=== PATIENT | female | born 1940 | race Caucasian/White ===

== ENCOUNTER 2025-02-17 07:52 | Outpatient (RCR) | payer MEDICARE, OTHER, SELFPAY ==
[2025-02-17 08:16] VITALS: BP 139/93; PULSE 78; RESP 14; TEMP 35.3
--- NOTE | 2025-02-17 08:53 | PCM.WC.HP ---
History of Present Illness Date of Service: 02/17/25 History of Wound: The patient is an 84-year-old female presenting with an elbow wound. The wound occurred approximately two months ago following a fall on December 16, which resulted in a hard, rock-like scab formation. The patient did not experience any fractures as confirmed by a negative X-ray, and there were no issues with elbow movement or sensation. The wound initially presented with swelling in the arm and hand, attributed to blood drainage, and the hand appeared black due to a hematoma. The wound measures approximately 2 x 2 cm with undermining of about 1 cm, and daily dressing changes have been performed. The patient has been applying antibiotic cream and changing the dressing daily, with plans to increase to twice daily changes to promote healing. The patient has a history of diabetes mellitus, although she has not been monitoring her A1c recently as advised by her previous healthcare provider. Given the presence of the wound, it was recommended to check her A1c along with other labs to assess her healing status. ROS: - Musculoskeletal: Denies pain or difficulty with elbow movement. - Neurological: Denies loss of sensation or motor function in the upper extremity. - Endocrine: Reports diabetes mellitus, but denies recent monitoring of A1c. Attestation: Documentation on this patient encounter was supported using ambient scribe technology/ voice AI technology. The patient consented to recording for the purpose of documenting the encounter. Provider reviewed content of the generated note prior to signature. [facility] Home Medications Medication Instructions Recorded Last Taken Type apixaban 5 mg tablet (Eliquis) 5 mg PO BID 02/17/25 Unknown History bupropion HCl 150 mg 24 hr tablet, 150 mg PO DAILY 02/17/25 Unknown History extended release diltiazem HCl 180 mg 180 mg PO DAILY 02/17/25 Unknown History capsule,extended release 24 hr furosemide 20 mg tablet 20 mg PO DAILY 02/17/25 Unknown History glimepiride 1 mg tablet 1 mg PO DAILY 02/17/25 Unknown History latanoprost 0.005 % eye drops 1 drp LEFT EYE 02/17/25 Unknown History lisinopril 10 mg tablet 10 mg PO DAILY 02/17/25 Unknown History metformin 500 mg tablet 500 mg PO BID 02/17/25 Unknown History metoprolol succinate 100 mg 100 mg PO BID 02/17/25 Unknown History tablet,extended release 24 hr pravastatin 20 mg tablet 20 mg PO DAILY 02/17/25 Unknown History Allergy/AdvReac Type Severity Reaction Status Date / Time acetaminophen (From Vicodin) Allergy Intermediate Itching Verified 02/17/25 08:22 hydrocodone (From Vicodin) Allergy Intermediate Itching Verified 02/17/25 08:22 Sulfa (Sulfonamide Allergy Intermediate Itching Verified 02/17/25 08:22 Antibiotics) Vital Signs Vital Signs Vital Signs: 02/17/25 08:16 Temperature 95.6 F L Temperature Source Temporal Pulse Rate 78 Respiratory Rate 14 Blood Pressure 139/93 H Blood Pressure Mean 108 Blood Pressure Source Monitor Blood Pressure Position Sitting Blood Pressure Location Left Arm Physical Exam Narrative RIGHT Upper Extremity Inspection: Wound on elbow, approximately 2 x 2 cm, with undermining nearly about 1 cm FROM 6 TO 11. No signs of infection. The wound appears to have been well cared for with daily dressing changes. Palpation: Arm and hand previously swollen due to blood drainage, but currently no acute swelling noted. Motor: Able to bend and extend all MP, PIP, and DIP joints. Pronation and supination are intact. Gives peace sign, thumbs up, and O.K. sign Sensory: Intact to light touch on the radial and ulnar borders. Patient confirms feeling touch everywhere. Vascular: Finger tips are warm and well perfused with greater than 2 second capillary refill. Debridement Note Debridement Note Wound debrided: Right elbow wound Laterality: Right Wound Grade/Stage: 3, subcutaneous tissue at the base of the wound, no exposed structures Type of Debridement: Excisional debridement Anesthesia Used: 4% Lidocaine Solution and - (5 cc of 1% lidocaine with 1:200,000 epinephrine ) Depth: Down to and including healthy tissue and in the subcutaneous layer Percentage of wound debrided: 100 Instrument Used: 7mm curette Tissue Removed: Old hematoma and fibrinous exudate Severity: Fat Layer Exposed Amount of bleeding with debridement: Mild Bleeding Controlled with: Compression and gauze Patient tolerated procedure: Patient tolerated procedure well Post-Debridement Measurements and Additional Note: Post-Debridement Measurements/Treatment - Nurse 1 - General Ulcer Assessment Start: 02/17/25 08:16 Freq: Status: Active Protocol: ZAK Activity Type Activity Date Activity User E-sign Co-sign Detail Recorded Client Recorded Date Recorded By Document 02/17/25 08:16 ML [id number] 02/17/25 08:20 ML 02/17/25 08:16 - Today's Visit Information Type of service Initial Visit Arrival Mode Ambulatory Transfer Assistance None Patient Identification Verified (Name & Yes ) Patient Requires Transmission-Based No Precautions Vital Signs Temperature (97.8 F-99.1 F) 95.6 F L Temperature Source Temporal Pulse Rate (60-100) 78 Pulse Location Monitor Respiratory Rate (12-18) 14 Respiratory rate source Monitor Blood Pressure (90/60-120/80) 139/93 H Blood Pressure Mean 108 Source Monitor Position Sitting Blood Pressure Location Left Arm Pain Scale: 0-10 Numeric Is Patient Pain Free? Yes - Nurse 1 - General Ulcer Measurement Start: 02/17/25 08:16 Freq: Status: Active Protocol: Activity Type Activity Date Activity User E-sign Co-sign Detail Recorded Client Recorded Date Recorded By Document 02/17/25 08:16 ML [id number] 02/17/25 08:20 ML 02/17/25 08:16 Wound Center Nurse 1 #1 RIGHT ELBOW -Current Size (cm) - Length 2 -Current Size (cm) - Width 1.5 -Current Size (cm) - Depth 0.2 -Total Square Cm 3.0 -Undermining/Tunneling Yes -Undermining/Tunneling Starts (O'clock 9 ) -Undermining/Tunneling Ends (O'clock) 12 -Maximum Distance (cm) 0.5 -Exudate Amt Medium -Exudate Type Sanguineous -Wound Margin Thickened & Rolled Under -Granulation Amt Small (1-33%) -Slough/Fibrin Yes -Necrosis Amt Medium (34-66%) -Necrotic Tissue Type Adherent Slough -Texture (Cora-wound Skin Appearance) Assessed -Moisture (Cora-wound Skin Appearance) Assessed -Color (Cora-wound Skin Appearance) Assessed -Tenderness on Palpation (Cora-wound No Skin Appearance) -Ulcer Cleansing Rinsed/ Irrigated with Saline -Foul Odor after Cleansing No -Anesthetic Used 5% Lidocaine Gel - Nurse 2 - General Ulcer CM Notes Start: 02/17/25 08:16 Freq: Status: Active Protocol: Activity Type Activity Date Activity User E-sign Co-sign Detail Recorded Client Recorded Date Recorded By Document 02/17/25 08:44 JF [id number] 02/17/25 08:52 AUSTEN 02/17/25 08:44 Wound Center Nurse 2 -Time 08:46 -Correct Patient Yes -Correct Side, Site, Position Yes -Correct Procedure Yes -Procedure Performed Yes -Type of Procedure Debridement -Clinical Debridement Subcutaneous -Tissue Removed Subcutaneous -Post Debridement (cm) - Length 2.0 -Post Debridement (cm) - Width 2 -Post Debridement (cm) - Depth 0.8 -Total Square (Post) (cm) 4.0 -Area of Debridement (cm) - Length 2 -Area of Debridement (cm) - Width 2 -Total Square (Area) (cm) 4 -Tunneling No -Undermining/Tunneling Yes -Undermining/Tunneling Starts (O'clock 8 ) -Undermining/Tunneling Ends (O'clock) 11 -Maximum Distance (cm) 1.0 -Circular Undermining No -Wound/Ulcer Outcome Not Healed -Ulcer Cleansing Rinsed/ Irrigated with Saline -Foul Odor after Cleansing No -Bioengineered Tissue No -Bleeding Controlled with Pressure -Treatment Response Procedure Tolerated Well -Offloading No -Debridement - Subq, 1st 20sq cm Yes Pain Scale: 0-10 Numeric Is Patient Pain Free? Yes Charges/Coding Visit Charges Office Visits / Consults: 62429 OV L3 New 30min Procedures Integumentary [id number]: [id number] Ritika subq tissue 20 sq cm/< Assessment/Plan Assessment/Plan (1) Ulcer of upper extremity: CODE(S): L98.499 - Non-pressure chronic ulcer of skin of other sites with unspecified severity PLAN: Assessment and Plan 84-year-old female with a history of diabetes mellitus presenting with an elbow wound. The wound, resulting from a fall two months ago, has shown no signs of infection and has been managed with daily dressing changes and antibiotic cream application. The wound measures approximately 2 x 2 cm with 1 cm undermining, and there is a plan to increase dressing changes to twice daily to promote healing. The patient's diabetes mellitus is a concern for wound healing, and it is recommended to check her A1c and other labs to assess her healing status. 1. Elbow Wound The plan for the elbow wound includes increasing dressing changes to twice daily with saline-soaked gauze to promote healing from the inside out. Antibiotic cream application will continue, and the wound will be monitored for signs of infection. Follow-up is scheduled for next week to assess progress and make any necessary adjustments to the treatment plan. 2. Diabetes Mellitus Given the patient's diabetes mellitus, it is important to monitor her A1c and other relevant labs to ensure optimal wound healing. A comprehensive metabolic panel and prealbumin levels will be checked to assess her nutritional and healing status. PLAN: Plan - Change the dressing on the elbow wound twice daily using saline-soaked gauze. - Continue applying antibiotic cream to the wound as directed. - Monitor the wound for any signs of infection, such as increased redness, swelling, or discharge. - Attend the follow-up appointment next week to assess wound healing progress. - Ensure A1c and other labs are checked to monitor diabetes management and wound healing.
[2025-02-17 12:25] LABS: Hematocrit 43.5 % (37-47); Hemoglobin 13.7 g/dL (12.0-15.0); Immature Granulocytes Count 0.050 X10^3/uL (0.0-0.0); Mean Corp Hgb Conc 31.5 g/dL (32-36); Mean Corpuscular Volume 93.8 fL (81-99); Mean Platelet Vol. 11.6 fl (6.2-12.0); NRBC Flagged by Analyzer 0 % (0-5); Platelet Count 277 K/mm3 (150-450); RBC Distribution Width CV 13.5 % (11.6-14.6); RBC Distribution Width SD 46.6 fl (35.1-43.9); Red Blood Count 4.64 M/mm3 (4.2-5.4); White Blood Count 12.1 K/mm3 (4.4-11.0)
[2025-02-17 13:51] LABS: AST(SGOT) 27 U/L (<=31); Alanine Aminotransfer ALT/SGPT 12 U/L (<=34); Albumin, Serum 4.2 g/dL (3.4-4.8); Alkaline Phosphatase 65 U/L (35-104); Anion Gap 18 (5-15); BUN 14 mg/dL (4-19); BUN/Creat Ratio 12.3 RATIO (10-20); Calcium,Total 9.5 mg/dL (7.6-11.0); Carbon Dioxide 19.6 mmol/L (21.0-32.0); Chloride 103 mmol/L (98-108); Globulin 3.3 g/dL (2.2-4.2); Glucose 146 mg/dL (70-99); Potassium 3.9 mmol/L (3.3-5.1)
[2025-02-18 04:07] LABS: Prealbumin 25 mg/dL (9-32)
--- NOTE | 2025-02-18 10:07 | WC ---
PHOTO-RIGHT ELBOW 02/17/25
== END 2025-02-18 23:59 | disposition home or self-care (01) ==
LOC: WC 07:52
PROVIDERS: PCP Internal Medicine Infectious Disease; Referring Provider Internal Medicine Infectious Disease; Visit Provider Surgery Plastic and Reconstructive Surgery
DX: E11.622 Type 2 diabetes mellitus with other skin ulcer (principal); L98.492 Non-pressure chronic ulcer of skin of other sites with fat layer exposed
CPT/HCPCS: 11042; 36415; 80053; 83036; 84134; 85025; 85652; 99204; 99214; G0463

== ENCOUNTER 2025-03-17 08:00 | Outpatient (RCR) | payer MEDICARE, OTHER, SELFPAY ==
[2025-02-24 08:11] VITALS: BP 139/77; PULSE 86; RESP 18; TEMP 35.5
--- NOTE | 2025-02-24 08:25 | PN.PCM_ITS ---
History of Present Illness Date of Service: 02/24/25 History of Wound: The patient is an 84-year-old female presenting with an elbow wound. The wound occurred approximately two months ago following a fall on December 16, which resulted in a hard, rock-like scab formation. The patient did not experience any fractures as confirmed by a negative X-ray, and there were no issues with elbow movement or sensation. The wound initially presented with swelling in the arm and hand, attributed to blood drainage, and the hand appeared black due to a hematoma. The wound measures approximately 2 x 2 cm with undermining of about 1 cm, and daily dressing changes have been performed. The patient has been applying antibiotic cream and changing the dressing daily, with plans to increase to twice daily changes to promote healing. The patient has a history of diabetes mellitus, although she has not been monitoring her A1c recently as advised by her previous healthcare provider. Given the presence of the wound, it was recommended to check her A1c along with other labs to assess her healing status. ROS: - Musculoskeletal: Denies pain or difficulty with elbow movement. - Neurological: Denies loss of sensation or motor function in the upper extremity. - Endocrine: Reports diabetes mellitus, but denies recent monitoring of A1c. Attestation: Documentation on this patient encounter was supported using ambient scribe technology/ voice AI technology. The patient consented to recording for the purpose of documenting the encounter. Provider reviewed content of the generated note prior to signature. Subjective Subjective History of Wound: The patient is an 84-year-old female presenting with an elbow wound. The wound occurred approximately two months ago following a fall on December 16, which resulted in a hard, rock-like scab formation. The patient did not experience any fractures as confirmed by a negative X-ray, and there were no issues with elbow movement or sensation. The wound initially presented with swelling in the arm and hand, attributed to blood drainage, and the hand appeared black due to a hematoma. The wound measures approximately 2 x 2 cm with undermining of about 1 cm, and daily dressing changes have been performed. The patient has been applying antibiotic cream and changing the dressing daily, with plans to increase to twice daily changes to promote healing. The patient has a history of diabetes mellitus, although she has not been monitoring her A1c recently as advised by her previous healthcare provider. Given the presence of the wound, it was recommended to check her A1c along with other labs to assess her healing status. ROS: - Musculoskeletal: Denies pain or difficulty with elbow movement. - Neurological: Denies loss of sensation or motor function in the upper extremity. - Endocrine: Reports diabetes mellitus, but denies recent monitoring of A1c. Attestation: Documentation on this patient encounter was supported using ambient scribe technology/ voice AI technology. The patient consented to recording for the purpose of documenting the encounter. Provider reviewed content of the generated note prior to signature. CURRENT ENCOUNTER, 24 February 2025: Doing well overall [] Objective Data Objective Data Vital Signs: Vital Signs Temp Pulse Resp BP 96 F L 86 18 139/77 H 02/24/25 08:11 02/24/25 08:11 02/24/25 08:11 02/24/25 08:11 Charges/Coding Procedures Integumentary 111xxx-113xx: [id number] Ritika subq tissue 20 sq cm/< Physical Exam Narrative RIGHT Upper Extremity Inspection: Wound on elbow, 1 x 1 cm, without undermining today. No signs of infection. The wound appears to have been well cared for with daily dressing changes. Palpation: Arm and hand previously swollen due to blood drainage, but currently no acute swelling noted. Motor: Able to bend and extend all MP, PIP, and DIP joints. Pronation and supination are intact. Gives peace sign, thumbs up, and O.K. sign Sensory: Intact to light touch on the radial and ulnar borders. Patient confirms feeling touch everywhere. Vascular: Finger tips are warm and well perfused with greater than 2 second capillary refill. Debridement Note Debridement Note Wound debrided: Right elbow wound Laterality: Right Wound Grade/Stage: 3 Type of Debridement: Excisional debridement Anesthesia Used: 4% Lidocaine Solution Depth: Down to and including healthy tissue Percentage of wound debrided: 100 Instrument Used: 7mm curette Tissue Removed: Fibrinous exudate and biofilm Severity: Fat Layer Exposed Amount of bleeding with debridement: Mild Bleeding Controlled with: Pressure Patient tolerated procedure: Patient tolerated procedure well Post-Debridement Measurements and Additional Note: Post-Debridement Measurements/Treatment ALBER - Nurse 1 - General Ulcer Assessment Start: 02/24/25 08:11 Freq: Status: Active Protocol: ALBER.LOWEXT Activity Type Activity Date Activity User E-sign Co-sign Detail Recorded Client Recorded Date Recorded By Document 02/24/25 08:11 RB [id number] 02/24/25 08:14 RB 02/24/25 08:11 - Today's Visit Information Type of service Follow-up Visit (Physician/COSMETICS COUNTER MANAGER ) Arrival Mode Ambulatory Transfer Assistance Manual Patient Identification Verified (Name & Yes ) Patient Requires Transmission-Based No Precautions Vital Signs Temperature (97.8 F-99.1 F) 96 F L Temperature Source Temporal Pulse Rate (60-100) 86 Pulse Location Monitor Respiratory Rate (12-18) 18 Respiratory rate source Observation Blood Pressure (90/60-120/80) 139/77 H Blood Pressure Mean (mm Hg) 97 Source Monitor Position Semi-Fowlers Blood Pressure Location Left Arm History Since Last Visit- (Skip if this is Patient's initial visit) Have you changed medications since your No last visit? Any new allergies or adverse reactions No Had a fall/change in ADL's that may No increase risk of falls Signs or symptoms of abuse and/or No neglect since last visit Have you been in the hospital since your No last visit? Has dressing in place as prescribed Yes Has compression in place as prescribed N/A Has offloadiing in place as prescribed N/A Experienced any changes in pain level or No management Pain Scale: 0-10 Numeric Is Patient Pain Free? No - Nurse 1 - General Ulcer Measurement Start: 02/24/25 08:11 Freq: Status: Active Protocol: Activity Type Activity Date Activity User E-sign Co-sign Detail Recorded Client Recorded Date Recorded By Document 02/24/25 08:11 RB [id number] 02/24/25 08:14 RB 02/24/25 08:11 Wound Center Nurse 1 #1 RIGHT ELBOW -Combined with other wound No -Current Size (cm) - Length 1.6 -Current Size (cm) - Width 1 -Current Size (cm) - Depth 0.4 -Total Square Cm 1.6 -Photo Taken Yes -Tunneling No -Undermining/Tunneling Yes -Undermining/Tunneling Starts (O'clock 5 ) -Undermining/Tunneling Ends (O'clock) 5 -Maximum Distance (cm) 0.8 -Circular Undermining No -Exudate Amt Medium -Exudate Type Serosanguineous -Wound Margin Thickened & Rolled Under -Granulation Amt Medium (34-66%) -Granulation Quality [place] -Slough/Fibrin Yes -Necrosis Amt Small (1-33%) -Necrotic Tissue Type Adherent Slough -Structure Exposed N/A -Texture (Cora-wound Skin Appearance) Assessed -Moisture (Cora-wound Skin Appearance) Dry/Scaly -Color (Cora-wound Skin Appearance) Assessed -Temperature (Cora-wound Skin No Abnormality Appearance) (Pt Warm) -Tenderness on Palpation (Cora-wound No Skin Appearance) -Ulcer Cleansing Wound Cleanser -Foul Odor after Cleansing No -Anesthetic Used 5% Lidocaine Gel Assessment/Plan Assessment/Plan (1) Ulcer of upper extremity: CODE(S): L98.499 - Non-pressure chronic ulcer of skin of other sites with unspecified severity PLAN: Assessment and Plan 84-year-old female with a history of diabetes mellitus presenting with an elbow wound. The wound, resulting from a fall two months ago, has shown no signs of infection and has been managed with twice daily dressing changes. The wound measures approximately 2 x 2 cm with 1 cm undermining, and there is a plan to continue dressing changes twice daily to promote healing. 1. Elbow Wound The plan for the elbow wound includes dressings twice daily with saline-soaked gauze to promote healing from the inside out. Follow-up is scheduled for 3 weeks to assess progress and make any necessary adjustments to the treatment plan. 2. Diabetes Mellitus A1c 6.4 (discussed today) Albumin was 4.2 and prealbumin 25 (adequate for wound healing)
--- NOTE | 2025-02-25 11:33 | WC ---
PHOTO-RIGHT ELBOW 02/24/25
[2025-03-17 08:12] VITALS: BP 132/73; PULSE 78; RESP 17; TEMP 35.3
--- NOTE | 2025-03-17 08:31 | PCM.WC.PN ---
History of Present Illness Date of Service: 03/17/25 History of Wound: The patient is an 84-year-old female presenting with an elbow wound. The wound occurred approximately two months ago following a fall on December 16, which resulted in a hard, rock-like scab formation. The patient did not experience any fractures as confirmed by a negative X-ray, and there were no issues with elbow movement or sensation. The wound initially presented with swelling in the arm and hand, attributed to blood drainage, and the hand appeared black due to a hematoma. The wound measures approximately 2 x 2 cm with undermining of about 1 cm, and daily dressing changes have been performed. The patient has been applying antibiotic cream and changing the dressing daily, with plans to increase to twice daily changes to promote healing. The patient has a history of diabetes mellitus, although she has not been monitoring her A1c recently as advised by her previous healthcare provider. Given the presence of the wound, it was recommended to check her A1c along with other labs to assess her healing status. ROS: - Musculoskeletal: Denies pain or difficulty with elbow movement. - Neurological: Denies loss of sensation or motor function in the upper extremity. - Endocrine: Reports diabetes mellitus, but denies recent monitoring of A1c. Attestation: Documentation on this patient encounter was supported using ambient scribe technology/ voice AI technology. The patient consented to recording for the purpose of documenting the encounter. Provider reviewed content of the generated note prior to signature. CURRENT ENCOUNTER, 17 Mar 2025: Doing well. Healed. Reviewed labs (A1C 6.4) Objective Data Objective Data Vital Signs: Vital Signs Temp Pulse Resp BP O2 Del Method 95.6 F L 78 17 132/73 H Room Air 03/17/25 08:12 03/17/25 08:12 03/17/25 08:12 03/17/25 08:12 03/17/25 08:12 Oxygen Delivery Method Room Air Charges/Coding Visit Charges Office Visits / Consults: 93578 OV L2 Est 10min Physical Exam Narrative Right forearm healed. Re-epithelialized Debridement Note Debridement Note No debridement was completed: No debridement was completed today Post-Debridement Measurements and Additional Note: Post-Debridement Measurements/Treatment ALBER - Nurse 1 - General Ulcer Assessment Start: 02/24/25 08:11 Freq: Status: Active Protocol: ZAK Activity Type Activity Date Activity User E-sign Co-sign Detail Recorded Client Recorded Date Recorded By Document 02/24/25 08:11 RB [id number] 02/24/25 08:14 RB Document 03/17/25 08:12 TS [id number] 03/17/25 08:26 TS 02/24/25 03/17/25 08:11 08:12 - Today's Visit Information Type of service Follow-up Visit Follow-up Visit (Physician/CARPET CLEANING TECHNICIAN (Physician/CARPET CLEANING TECHNICIAN ) ) Arrival Mode Ambulatory Ambulatory, Walker Transfer Assistance Manual Patient Identification Verified (Name & Yes Yes ) Patient Requires Transmission-Based No No Precautions Safety Precautions Fall Prevention Vital Signs Temperature (97.8 F-99.1 F) 96 F L 95.6 F L Temperature Source Temporal Temporal Pulse Rate (60-100) 86 78 Pulse Location Monitor Monitor Respiratory Rate (12-18) 18 17 Respiratory rate source Observation Observation Oxygen Delivery Method Room Air Blood Pressure (90/60-120/80) 139/77 H 132/73 H Blood Pressure Mean (mm Hg) 97 92 Source Monitor Monitor Position Semi-Fowlers Blood Pressure Location Left Arm History Since Last Visit- (Skip if this is Patient's initial visit) Have you changed medications since your No No last visit? Any new allergies or adverse reactions No No Had a fall/change in ADL's that may No No increase risk of falls Signs or symptoms of abuse and/or No No neglect since last visit Have you been in the hospital since your No No last visit? Has dressing in place as prescribed Yes No Has compression in place as prescribed N/A N/A Has offloadiing in place as prescribed N/A N/A Experienced any changes in pain level or No No management Left Footwear Regular Shoe Right Footwear Regular Shoe Pain Scale: 0-10 Numeric Is Patient Pain Free? No Yes - Nurse 1 - General Ulcer Measurement Start: 02/24/25 08:11 Freq: Status: Active Protocol: Activity Type Activity Date Activity User E-sign Co-sign Detail Recorded Client Recorded Date Recorded By Document 02/24/25 08:11 RB [id number] 02/24/25 08:14 RB Document 03/17/25 08:12 TS [id number] 03/17/25 08:26 TS 02/24/25 03/17/25 08:11 08:12 Wound Center Nurse 1 #1 RIGHT ELBOW -Combined with other wound No No -Current Size (cm) - Length 1.6 0.1 -Current Size (cm) - Width 1 0.1 -Current Size (cm) - Depth 0.4 0.1 -Total Square Cm 1.6 0.01 -Date of Last Picture (Recall this 03/17/25 field) -Photo Taken Yes Yes -Tunneling No No -Undermining/Tunneling Yes No -Undermining/Tunneling Starts (O'clock 5 ) -Undermining/Tunneling Ends (O'clock) 5 -Maximum Distance (cm) 0.8 -Circular Undermining No No -Exudate Amt Medium None Present -Exudate Type Serosanguineous -Wound Margin Thickened & Distinct, Rolled Under Outline Attached -Granulation Amt Medium (34-66%) None Present (0 %) -Granulation Quality [place] -Slough/Fibrin Yes No -Necrosis Amt Small (1-33%) None Present (0 %) -Necrotic Tissue Type Adherent Slough -Structure Exposed N/A None/Limited to Skin Breakdown -Texture (Cora-wound Skin Appearance) Assessed Assessed -Moisture (Cora-wound Skin Appearance) Dry/Scaly Assessed -Color (Cora-wound Skin Appearance) Assessed Assessed -Temperature (Cora-wound Skin No Abnormality No Abnormality Appearance) (Pt Warm) (Pt Warm) -Tenderness on Palpation (Cora-wound No No Skin Appearance) -Ulcer Cleansing Wound Cleanser Soap and Water -Foul Odor after Cleansing No No -Anesthetic Used 5% Lidocaine Gel WC - Nurse 2 - General Ulcer CM Notes Start: 02/24/25 08:11 Freq: Status: Active Protocol: Activity Type Activity Date Activity User E-sign Co-sign Detail Recorded Client Recorded Date Recorded By Document 02/24/25 08:40 DS [id number] 02/24/25 08:41 DS 02/24/25 08:40 Wound Center Nurse 2 -Time 08:40 -Correct Patient Yes -Correct Side, Site, Position Yes -Correct Procedure Yes -Procedure Performed Yes -Type of Procedure Debridement -Clinical Debridement Subcutaneous -Tissue Removed Subcutaneous -Post Debridement (cm) - Length 1.0 -Post Debridement (cm) - Width 1.0 -Post Debridement (cm) - Depth 0.1 -Total Square (Post) (cm) 1.00 -Area of Debridement (cm) - Length 1.0 -Area of Debridement (cm) - Width 1.0 -Total Square (Area) (cm) 1.00 -Tunneling No -Undermining/Tunneling No -Circular Undermining No -Wound/Ulcer Outcome Not Healed -Ulcer Cleansing gauze -Foul Odor after Cleansing No -Bioengineered Tissue No -Bleeding Controlled with Pressure -Treatment Response Procedure Tolerated Well -Debridement - Subq, 1st 20sq cm Yes Pain Scale: 0-10 Numeric Is Patient Pain Free? Yes - Nurse 3 - General Ulcer D/C NN Start: 02/24/25 08:11 Freq: Status: Active Protocol: Activity Type Activity Date Activity User E-sign Co-sign Detail Recorded Client Recorded Date Recorded By Document 02/24/25 08:48 [id number] 02/24/25 08:48 02/24/25 08:48 Wound Care Center Nurse 3 #1 RIGHT ELBOW -Ulcer Cleansing Not Cleansed -Foul Odor after Cleansing No -Primary Dressing Covered/Secured with Dry Gauze & Roll Gauze, Secured with Tape -Other Covering saline wet to dry Pain Scale: 0-10 Numeric Is Patient Pain Free? Yes - Visit Discharge Discharge Condition Stable Ambulatory Status Ambulatory Transportation Private Auto Assessment/Plan Assessment/Plan (1) Ulcer of upper extremity: CODE(S): L98.499 - Non-pressure chronic ulcer of skin of other sites with unspecified severity PLAN: Healed. Use Aquafor as needed for dry skin F/u as needed
--- NOTE | 2025-03-18 10:29 | WC ---
PHOTO-RIGHT ELBOW 03/17/25
== END 2025-03-17 10:11 | disposition home or self-care (01) ==
LOC: WC 08:00
PROVIDERS: PCP Internal Medicine Infectious Disease; Referring Provider Internal Medicine Infectious Disease; Visit Provider Surgery Plastic and Reconstructive Surgery
DX: E11.622 Type 2 diabetes mellitus with other skin ulcer (principal); L98.492 Non-pressure chronic ulcer of skin of other sites with fat layer exposed
CPT/HCPCS: 11042; 99212; G0463